=== PATIENT | male | born 1970 | race Caucasian/White ===

== ENCOUNTER 2016-03-13 22:40 | Emergency (ER) | payer OTHER ==
[2016-03-13 23:32] LABS: URINE BILIRUBIN NEGATIVE (NEGATIVE); URINE BLOOD NEGATIVE (NEGATIVE); URINE GLUCOSE (UA) NEGATIVE (NEGATIVE); URINE LEUKOCYTE ESTERASE NEGATIVE (NEGATIVE); URINE NITRITE NEGATIVE (NEGATIVE); URINE PROTEIN NEGATIVE (NEGATIVE); URINE UROBILINOGEN NORMAL (0-1 mg/dl)
[2016-03-13 23:39] LABS: URINE APPEARANCE CLEAR; URINE COLOR YELLOW
--- NOTE | 2016-03-14 07:21 | RAD ---
LUMBAR SPINE ROUTINE 2 3 VWS HISTORY: Slipped and fell 3 days ago. COMPARISONS: None. FINDINGS: AP and lateral views of the lumbar spine were performed demonstrating 5 lumbar-type vertebral bodies. The vertebral body height and alignment appears to remain intact. Minimal disc height loss is seen at L1-2 and L2-3 with the suggestion of endplate Schmorl's node formation adjacent to the L2-3 disc space. Posterior elements appear to be intact. The sacrum and sacroiliac joints are unremarkable. IMPRESSION: 1. Mild spondylosis changes at L1-L2 3. No significant compression deformity is visualized.
== END 2016-03-14 00:14 | disposition home or self-care (01) ==
LOC: ED 22:40
DX: M54.9 Dorsalgia, unspecified (principal); I10 Essential (primary) hypertension; I34.1 Nonrheumatic mitral (valve) prolapse; F17.210 Nicotine dependence, cigarettes, uncomplicated